=== PATIENT | male | born 1970 | race Caucasian/White ===

== ENCOUNTER 2019-05-29 00:11 | Emergency (ER) | payer BC ==
--- NOTE | 2019-05-29 00:28 | EDM.PDOC ---
ED HPI GENERAL MEDICAL PROBLEM - General Chief Complaint: Laceration Time Seen by Provider: 05/29/19 00:21 - History of Present Illness INITIAL COMMENTS - FREE TEXT/NARRATIVE: PT fell on sidewalk after drinking tonight, laceration to left side of forehead , no LOC. Location: Reports: Head - Related Data Allergies Allergy/AdvReac Type Severity Reaction Status Date / Time No Known Allergies Allergy Verified 05/29/19 00:24 Home Meds: Home Meds Calcium Carbonate/Vitamin D3 [Calcium Carbonate/Vitamin D 600 MG-200 Unit] 1 tab PO BID 05/29/19 [History] Escitalopram [Lexapro] 10 mg PO DAILY 05/29/19 [History] Phenytoin Sodium Extended [Dilantin] 100 mg PO ASDIRECTED 05/29/19 [History] lamoTRIgine [Lamictal] 75 mg PO BID 05/29/19 [History] lamoTRIgine [Lamictal] 200 mg PO BID 05/29/19 [History] ED ROS GENERAL - Review of Systems Review Of Systems: See Below Constitutional: Reports: No Symptoms HEENT: Reports: Other (laceration left side of forehead ) Respiratory: Reports: No Symptoms Cardiovascular: Reports: No Symptoms Endocrine: Reports: No Symptoms GI/Abdominal: Reports: No Symptoms : Reports: No Symptoms Musculoskeletal: Reports: No Symptoms Skin: Reports: Other (laceration left side of forehead, 3 side laceration ) Neurological: Reports: No Symptoms Psychiatric: Reports: No Symptoms Hematologic/Lymphatic: Reports: No Symptoms Immunologic: Reports: No Symptoms ED EXAM, SKIN/RASH Exam: See Below Text/Narrative:: 3 sides laceration 2x2x1 cm area cleaned and prepped, no foreign bodies in wound through exam or noted on ct, no fractures noted, area anesthetized with 2 cc 2% lidocaine. closed with 4 sutures 4-0 ethilon. PT tolerated procedure well. Exam Limited By: No Limitations General Appearance: Alert, WD/WN, No Apparent Distress Ears: Normal External Exam Nose: Normal Inspection Throat/Mouth: Normal Inspection Head: Other (3 side laceration ) Respiratory/Chest: No Respiratory Distress Cardiovascular: Normal Peripheral Pulses Extremities: Normal Inspection, Normal Range of Motion Neurological: Alert Psychiatric: Normal Affect, Normal Mood Skin: Warm, Dry Course - Vital Signs Last Recorded V/S: Last Vital Signs Temp 35.1 C L 05/29/19 00:11 Pulse 72 05/29/19 00:11 Resp 16 05/29/19 00:11 BP 132/89 05/29/19 00:11 Pulse Ox 95 05/29/19 00:11 - Orders/Labs/Meds Orders: Active Orders 24 hr Category Date Time Status Head wo Cont [CT] Stat Exams 05/29/19 00:20 Ordered Meds: Medications Discontinued Medications Generic Name Dose Route Start Last Admin Trade Name Fabian PRN Reason Stop Dose Admin Lidocaine HCl 10 ml 05/29/19 01:03 05/29/19 01:09 Xylocaine-Mpf 2% (Sterile-Jimenez) INJECT 05/29/19 01:04 10 ml ONETIME ONE Administration Departure - Departure Time of Disposition: 01:37 Disposition: Home, Self-Care 01 Condition: Good Clinical Impression: Laceration - Discharge Information Instructions: Stitches, Edmund, or Adhesive Wound Closure, [id number] Forms: ED Department Discharge - My Orders Last 24 Hours: My Active Orders 05/29/19 00:20 Head wo Cont [CT] Stat - Assessment/Plan Last 24 Hours: My Active Orders 05/29/19 00:20 Head wo Cont [CT] Stat
[2019-05-29] MEDS ORDERED: Lidocaine 2% 10 ML Amp INJECT ONE (01:03)
--- NOTE | 2019-05-29 10:21 | CT ---
[id number] CT/CT Head WO IV EXAM: NONCONTRAST HEAD CT INDICATION: FALL HIT LEFT FOREHEAD COMPARISON: None. DISCUSSION: The ventricles and sulci are normal in size and configuration. The suggs and white matter are normal in attenuation. No mass effect or midline shift. No acute hemorrhage or extra-axial fluid collection. No acute territorial infarct is identified. Mild paranasal sinus mucosal thickening. IMPRESSION: 1. No evidence of acute intracranial trauma. Rishi Rutherford MD 05/29/19 1730 Thank you for allowing us to participate in the care of your patient.
== END 2019-05-29 01:45 | disposition home or self-care (01) ==
LOC: VM.ED 00:11
DX: S01.81XA Laceration without foreign body of other part of head, initial encounter (principal); W10.1XXA Fall (on)(from) sidewalk curb, initial encounter; Y92.480 Sidewalk as the place of occurrence of the external cause
CPT/HCPCS: 12011; 70450; 99283; J2001